=== PATIENT | male | born 1940 | race Caucasian/White ===

== ENCOUNTER 2017-02-09 11:00 | Inpatient (IN) ==
[2017-02-09] MEDS ORDERED: traMADol 50 MG TABLET PO PRN (15:51)
[2017-02-09] MEDS ORDERED: Acetaminophen 325 MG TABLET PO PRN (15:51)
[2017-02-09] MEDS ORDERED: Ipratropium/Albuterol Neb 3 ML IH PRN (15:51)
[2017-02-09] MEDS ORDERED: Nitroglycerin 0.4 MG TAB.SUBL SL PRN (15:51)
[2017-02-09] MEDS: Ipratropium/Albuterol Neb 3 ML IH SCH ×2 (17:00→22:12)
[2017-02-09] MEDS: Furosemide 20 MG TABLET PO SCH (18:14)
[2017-02-09] MEDS: Metoprolol XL (24 HR) Succ 50 MG TAB.ER.24H PO SCH (18:14)
[2017-02-09] MEDS: Isosorbide MONOnitrate (24 HR) 60 MG TAB.ER.24H PO SCH (18:14)
[2017-02-09] MEDS: Budesonide/Formoterol 160/4.5 MDI IH SCH (22:11)
[2017-02-10] MEDS: Ipratropium/Albuterol Neb 3 ML IH SCH ×4 (04:41→21:59)
[2017-02-10 06:52] LABS: Basophils % 0.1 %; Hematocrit 34.4 % (37.5-50.1); Hemoglobin 11.7 g/dL (12.9-16.9); Immature Granulocytes % 0.9 % (0-4); Lymphocytes % 4.7 %; Mean Corpuscular Hemoglobin 30.5 pg (28.0-33.3); Mean Corpuscular Volume 89.8 fL (83.0-100.0); Mean Platelet Volume 11.2 fL (9.4-12.4); Monocytes # 0.9 K/mcL (0.0-1.3); Monocytes % 5.8 %; Neutrophils # 14.1 K/mcL (1.6-8.9); Platelet Count 346 K/mcL (140-400); Red Blood Count 3.83 M/mcL (4.19-5.50); Red Cell Distribution Width 12.8 % (11.5-14.5); Segmented Neutrophils % 88.5 %
[2017-02-10 07:08] LABS: Calcium 8.8 mg/dL (8.6-10.8); Potassium 3.2 mEq/L (3.5-4.5)
[2017-02-10 07:14] LABS: Lymphocytes # 0.8 K/mcL (0.6-4.6)
[2017-02-10 08:03] LABS: INR 1.2; Prothrombin Time 12.5 Seconds (9.4-12.1)
[2017-02-10] MEDS: Furosemide 20 MG TABLET PO SCH ×2 (08:35→16:19)
[2017-02-10] MEDS: Loratadine 10 MG TABLET PO SCH (08:35)
[2017-02-10] MEDS: Finasteride 5 MG TABLET PO SCH (08:35)
[2017-02-10] MEDS: Aspirin Enteric Coated 325 MG Tablet PO SCH (08:43)
[2017-02-10] MEDS ORDERED: predniSONE 10 MG TABLET PO SCH (09:00)
[2017-02-10] MEDS ORDERED: amLODIPine 5 MG TABLET PO SCH (09:00)
[2017-02-10] MEDS ORDERED: Ascorbic Acid 500 MG TABLET PO SCH (09:00)
[2017-02-10] MEDS: Budesonide/Formoterol 160/4.5 MDI IH SCH ×2 (10:34→22:00)
[2017-02-10] MEDS: Nystatin SUSP 5 ML UD.LIQ PO SCH ×3 (16:08→20:35)
[2017-02-10] MEDS: Isosorbide MONOnitrate (24 HR) 60 MG TAB.ER.24H PO SCH (16:18)
[2017-02-10] MEDS: Metoprolol XL (24 HR) Succ 50 MG TAB.ER.24H PO SCH (16:19)
--- NOTE | 2017-02-10 17:24 | Internal Med History&Physical ---
Date of Encounter: 02/10/17 Time of Encounter: 16:40 Assessment and Plan (1) Pneumonia Current visit: No Status: Acute He completed a course of antibiotics during his [facility] stay. Will monitor labs and clinical status. Repeat chest CT scan was recommended in 3-6 months by the radiologist. Qualifiers: Pneumonia type: due to unspecified organism Laterality: bilateral Lung location: unspecified part of lung Qualified Code(s): J18.9 - Pneumonia, unspecified organism (2) Idiopathic pulmonary fibrosis Current visit: No Status: Acute Continue prednisone and oxygen. (3) Atrial fibrillation Current visit: No Status: Acute He reports being told he should not use OAC. Continue aspirin Qualifiers: Atrial fibrillation type: paroxysmal Qualified Code(s): I48.0 - Paroxysmal atrial fibrillation (4) Chronic systolic (congestive) heart failure Current visit: No Status: Chronic We will check BNP peptide in a.m. Continue lisinopril, Lasix, and metoprolol. (5) Hypokalemia Current visit: No Status: Acute We will give supplemental potassium and monitor labs. (6) Weight loss Current visit: Yes Status: Acute He had chest and abdominal CT scans during his recent [facility] stay without evidence of malignancy. Will recheck TSH in a.m. Internal Medicine - H&P: HPI Chief complaint: Pneumonia, weakness Admitted From: Hospital to Hospital Transfer Plans for Post Hospital Care: Home History of present illness: Mr. Bojorquez is a 77 year old male who was hospitalized at [facility] February 01- February 09 after presenting with dyspnea. He was found to have bilateral pneumonia on chest CT. He was stabilized and discharged to [facility] swing bed for rehabilitation therapy prior to returning home. His respiratory history is significant for a diagnosis of pulmonary fibrosis in 2011. He smoked from age [age] and has a diagnosis of COPD. He wears oxygen 24 /7 at home. He follows with an [facility] ballpoint pen cartridge tester. Past Med Surg Social Fam HX - Past Medical History Medical history: arthritis, atrial fibrillation, COPD, coronary artery disease, hyperlipidemia, hypertension, myocardial infarction, other Psychiatric history: depression - Past Surgical History Surgical History: coronary bypass (CABG) - Social History Smoking Status: Former smoker Smokeless Tobacco Status: No Alcohol use: occasionally Drug use: none - Family History Mother Family Member Ethnicity: Non- Living Status: Hx Family Cardiac Disorders: Yes Internal Medicine - H&P: Meds Albuterol Sulfate [Ventolin Hfa] 2 puff IH Q4-6H PRN 02/09/15 [History] Allopurinol [Zyloprim] 300 mg PO BID 02/09/15 [History] Finasteride [Proscar] 5 mg PO DAILY 02/09/15 [History] Fluticasone Propionate Nasal [Flonase] 2 spray NS DAILY 02/09/15 [History] Fluticasone/Salmeterol [Advair 500-50 Diskus] 1 each IH BID 02/09/15 [History] Ipratropium/Albuterol Neb [Duoneb] 3 ml IH Q6HR PRN 02/09/15 [History] Isosorbide MONOnitrate (24 HR) [Imdur] 60 mg PO QPM 02/09/15 [History] Nitroglycerin 0.4 mg SL Q5MIN PRN 02/09/15 [History] Simvastatin [Zocor] 40 mg PO HS 02/09/15 [History] Aspirin [Ecotrin] 325 mg PO DAILY 06/20/16 [History] Desloratadine 5 mg PO DAILY 06/20/16 [History] Lisinopril [Zestril] 10 mg PO QAM 06/20/16 [History] Metoprolol Succinate 100 mg PO QPM 06/20/16 [History] Ascorbic Acid [Vitamin C] 500 mg PO DAILY 02/01/17 [History] Vitamin E Acid Succinate [Vitamin E] 400 units PO DAILY 02/01/17 [History] amLODIPine [Norvasc] 5 mg PO DAILY 02/01/17 [History] Acetaminophen [Tylenol] 650 mg PO Q6HR PRN tablet 02/09/17 [Rx] Furosemide [Lasix] 20 mg PO BID #60 tablet 02/09/17 [Rx] Ipratropium/Albuterol Neb [Duoneb] 3 ml IH [id number] inhsol 02/09/17 [Rx] Megestrol Acetate [Megace] 40 mg PO DAILY tablet 02/09/17 [Rx] Potassium Chloride 10 meq PO Q24H #0 tab.er.prt 02/09/17 [Rx] Tramadol HCl [Ultram] 50 mg PO QID PRN #20 tablet 02/09/17 [Rx] predniSONE [PredniSONE] 10 mg PO Q24H 49 Days tablet 02/09/17 [Rx] 3 Allergy/AdvReac Type Severity Reaction Status Date / Time No Known Allergies Allergy Verified 06/20/16 13:27 All Systems PM: A 10-system review of systems was performed and is negative for pertinent findings except as documented above in the HPI. Review of systems: Gen.: He states his weight has decreased approximately 30 pounds in the past 2 years due to poor appetite. He is now on Megace. Cardiovascular: He has a history of hypertension. He has known ASHD status post CT in 1995 followed by a single vessel CABG. He thinks he had a heart cath approximately 2011 without further intervention done. He has a diagnosis of CHF with an echocardiogram at [facility] 02/01/2017 showing LVEF of 40%. There was LAE at 5.0 cm. There was increased thickness of the interventricular septum and posterior wall at 1.20 cm each. A previous echocardiogram 2016 showed mild MR, moderate TR, and moderate pulmonary hypertension with estimated RVSP of 52 mmHg. He LVEF was 35% at that time. He has paroxysmal atrial fibrillation. He denies DVT or pulmonary emboli. Respiratory: As per history of present illness GI: He denies disorders of his liver gallbladder or exocrine pancreas. : He had azotemia during his [facility] stay. He has had hematuria approximately 2013 with a negative cystoscopy. Neurologic: He denies large distribution strokes or seizures. He had a fall several months ago and sustained a subdural hematoma which was treated nonoperatively. He was told he could not be on OAC for atrial fibrillation due to the SDH. Endocrine: He has hyperlipidemia. He was told he was borderline diabetic in the past. He denies thyroid disease. Hematology/oncology: He had anemia on blood work during his [facility] stay. He denies internal malignancies. Psychiatric: He has anxiety and depression but denies other mental health issues Musk skeletal: He has diagnoses of DJD and gout. - Constitutional Vitals: Temp Pulse Resp BP Pulse Ox 97.9 F 104 14 125/79 93 02/10/17 07:44 02/10/17 12:18 02/10/17 10:34 02/10/17 07:44 02/10/17 12:18 Exam: Gen.: He is a well-developed well-nourished male who appears in minimal respiratory distress at the present time. HEENT: Head is atraumatic and normocephalic. Eyes: EOMI. There is no scleral icterus. Mouth: Mucosa is moist. Neck: Supple and nontender. There is no thyromegaly or adenopathy noted. Heart: Irregularly irregular. Tones are soft. Lungs: He has inspiratory crackles diffusely that do not clear with coughing. He has no expiratory wheezing. Abdomen: Soft and nontender. No masses or guarding are noted. Extremities: There is no cyanosis edema or clubbing noted. Dorsalis pedis and posttibial pulses are trace to 1+ palpable bilaterally. He has DJD changes of his hands. Neurologic: Mental status: He is talkative and a good historian. Cranial nerves : Smile is symmetric. Forehead wrinkles bilaterally. Tongue protrudes midline. EOMI. Motor: There is no pronator drift. Cerebellar: Finger to nose is intact bilaterally. Skin: Warm and dry Internal Med - H&P Results - Labs CBC & Chem 7: 02/10/17 05:42 02/10/17 05:42 Labs: Short CBC 02/10/17 Range/Units 05:42 WBC 15.9 H (4.3-11.1) K/mcL Hgb 11.7 L (12.9-16.9) g/dL Hct 34.4 L (37.5-50.1) % Plt Count 346 (140-400) K/mcL Neutrophils # 14.1 H (1.6-8.9) K/mcL BMP 02/10/17 05:42 Sodium 144 Potassium 3.2 L Chloride 103 Carbon Dioxide 26 BUN 60 H Creatinine 1.89 H Glucose 143 H Calcium 8.8
[2017-02-11] MEDS: Ipratropium/Albuterol Neb 3 ML IH SCH ×4 (04:42→21:36)
[2017-02-11 06:26] LABS: Basophils % 0.2 %; Eosinophils # 0.1 K/mcL (0.0-0.6); Eosinophils % 0.4 %; Hematocrit 33.8 % (37.5-50.1); Hemoglobin 11.6 g/dL (12.9-16.9); Immature Granulocytes % 1.1 % (0-4); Lymphocytes # 1.5 K/mcL (0.6-4.6); Mean Corpuscular HGB Conc 34.3 g/dL (31.6-35.5); Mean Corpuscular Hemoglobin 30.7 pg (28.0-33.3); Mean Corpuscular Volume 89.4 fL (83.0-100.0); Mean Platelet Volume 11.4 fL (9.4-12.4); Monocytes # 1.1 K/mcL (0.0-1.3); Platelet Count 337 K/mcL (140-400); Red Blood Count 3.78 M/mcL (4.19-5.50); Red Cell Distribution Width 12.9 % (11.5-14.5); Segmented Neutrophils % 84.3 %
[2017-02-11 06:30] LABS: Neutrophils # 15.9 K/mcL (1.6-8.9)
[2017-02-11 06:46] LABS: Calcium 8.8 mg/dL (8.6-10.8); Potassium 3.2 mEq/L (3.5-4.5)
[2017-02-11] MEDS ORDERED: predniSONE 10 MG TABLET PO SCH (09:00)
[2017-02-11] MEDS: Ascorbic Acid 500 MG TABLET PO SCH (10:12)
[2017-02-11] MEDS: Nystatin SUSP 5 ML UD.LIQ PO SCH ×4 (10:13→20:52)
[2017-02-11] MEDS: Finasteride 5 MG TABLET PO SCH (10:13)
[2017-02-11] MEDS: Loratadine 10 MG TABLET PO SCH (10:13)
[2017-02-11] MEDS: Aspirin Enteric Coated 325 MG Tablet PO SCH (10:13)
[2017-02-11] MEDS: Furosemide 20 MG TABLET PO SCH (10:13)
[2017-02-11] MEDS: Fluticasone Propionate Nasal 50 MCG/SPRAY BOTTLE NS SCH ×2 (10:14→15:41)
[2017-02-11] MEDS: Budesonide/Formoterol 160/4.5 MDI IH SCH ×2 (10:35→21:36)
--- NOTE | 2017-02-11 13:04 | Internal Med Progress Note ---
Date of Encounter: 02/11/17 Time of Encounter: 12:55 - Assessment and plan (1) Pneumonia Current Visit: No Status: Acute Assessment and plan: February 11. Leukocytosis with left shift has slightly worsened. He does not feel unusually dyspneic and has not had fevers. Will monitor without giving antibiotics at this time. Qualifiers: Pneumonia type: due to unspecified organism Laterality: bilateral Lung location: unspecified part of lung Qualified Code(s): J18.9 - Pneumonia, unspecified organism (2) Idiopathic pulmonary fibrosis Current Visit: No Status: Acute Assessment and plan: February 11. Will decrease prednisone. Continue oxygen. (3) Atrial fibrillation Current Visit: No Status: Acute Assessment and plan: February 11. Continue aspirin. Qualifiers: Atrial fibrillation type: paroxysmal Qualified Code(s): I48.0 - Paroxysmal atrial fibrillation (4) Chronic systolic (congestive) heart failure Current Visit: No Status: Chronic Assessment and plan: February 11. Will increase isosorbide. Decrease Lasix to avoid worsening azotemia. Add Lanoxin. Continue metoprolol and lisinopril. (5) Hypokalemia Current Visit: No Status: Acute Assessment and plan: February 11. Continue supplemental potassium and monitor labs (6) Weight loss Current Visit: Yes Status: Acute Assessment and plan: February 11. TSH was normal. (7) Acute renal failure (ARF) Current Visit: No Status: Acute Assessment and plan: February 11. Will decrease Lasix and monitor labs. Qualifiers: Acute renal failure type: unspecified Qualified Code(s): N17.9 - Acute kidney failure, unspecified - Subjective Interval history: February 11. He has no new complaints. He reports persistent mild pain on swallowing - Constitutional Vitals: Temp Pulse Resp BP Pulse Ox 98.6 F 71 16 96/46 94 02/11/17 06:18 02/11/17 06:18 02/11/17 06:18 02/11/17 06:18 02/11/17 09:00 Exam: He is resting comfortably in bed and appears in no acute distress. His affect is bright and cheerful. I reviewed his medications and lab results. Internal Medicine: Result - Labs CBC & Chem 7: 02/11/17 04:19 02/11/17 04:19 Labs: Short CBC 02/11/17 Range/Units 04:19 WBC 18.9 H (4.3-11.1) K/mcL Hgb 11.6 L (12.9-16.9) g/dL Hct 33.8 L (37.5-50.1) % Plt Count 337 (140-400) K/mcL Neutrophils # 15.9 H (1.6-8.9) K/mcL BMP 02/11/17 04:19 Sodium 143 Potassium 3.2 L Chloride 104 Carbon Dioxide 25 BUN 66 H Creatinine 1.98 H Glucose 104 H Calcium 8.8 - ABG Interpretation ABG results: PT/INR, D-dimer PT 12.5 Seconds (9.4-12.1) H 02/10/17 05:42 Consult Discharge Plan - Plan Referrals: Gayatri Jade, REQUISITION APPROVER [Primary Care Provider] - 1 week
[2017-02-11] MEDS ORDERED: Loratadine 10 MG TABLET PO PRN (13:11)
[2017-02-11] MEDS: Isosorbide MONOnitrate (24 HR) 60 MG TAB.ER.24H PO SCH ×2 (15:50→18:49)
[2017-02-11] MEDS: *HR* Digoxin 0.125 MG TABLET PO SCH (15:51)
[2017-02-11 18:35] LABS: Folate 7.5 ng/mL (7.0-31.4)
[2017-02-11] MEDS: Metoprolol XL (24 HR) Succ 50 MG TAB.ER.24H PO SCH (18:50)
[2017-02-12] MEDS: Ipratropium/Albuterol Neb 3 ML IH SCH ×4 (04:26→21:49)
[2017-02-12] MEDS: *HR* Digoxin 0.125 MG TABLET PO SCH (09:10)
[2017-02-12] MEDS: Ascorbic Acid 500 MG TABLET PO SCH (09:10)
[2017-02-12] MEDS: Finasteride 5 MG TABLET PO SCH (09:11)
[2017-02-12] MEDS: Furosemide 20 MG TABLET PO SCH (09:11)
[2017-02-12] MEDS: Aspirin Enteric Coated 325 MG Tablet PO SCH (09:14)
[2017-02-12] MEDS: Nystatin SUSP 5 ML UD.LIQ PO SCH ×4 (09:14→19:33)
[2017-02-12] MEDS: Budesonide/Formoterol 160/4.5 MDI IH SCH ×2 (10:27→21:49)
--- NOTE | 2017-02-12 15:25 | Internal Med Progress Note ---
Date of Encounter: 02/12/17 Time of Encounter: 15:15 - Assessment and plan (1) Pneumonia Current Visit: No Status: Acute Assessment and plan: February 11. Leukocytosis with left shift has slightly worsened. He does not feel unusually dyspneic and has not had fevers. Will monitor without giving antibiotics at this time. February 12. Recheck CBC in a.m. Remains afebrile. Qualifiers: Pneumonia type: due to unspecified organism Laterality: bilateral Lung location: unspecified part of lung Qualified Code(s): J18.9 - Pneumonia, unspecified organism (2) Idiopathic pulmonary fibrosis Current Visit: No Status: Acute Assessment and plan: February 11. Will decrease prednisone. Continue oxygen. (3) Atrial fibrillation Current Visit: No Status: Acute Assessment and plan: February 11. Continue aspirin. Qualifiers: Atrial fibrillation type: paroxysmal Qualified Code(s): I48.0 - Paroxysmal atrial fibrillation (4) Chronic systolic (congestive) heart failure Current Visit: No Status: Chronic Assessment and plan: February 11. Will increase isosorbide. Decrease Lasix to avoid worsening azotemia. Add Lanoxin. Continue metoprolol and lisinopril. February 12. Continue present regimen. Recheck labs in a.m. (5) Hypokalemia Current Visit: No Status: Acute Assessment and plan: February 11. Continue supplemental potassium and monitor labs February 12. Recheck labs in a.m. (6) Weight loss Current Visit: Yes Status: Acute Assessment and plan: February 11. TSH was normal. (7) Acute renal failure (ARF) Current Visit: No Status: Acute Assessment and plan: February 11. Will decrease Lasix and monitor labs. February 12. Recheck labs in a.m. Qualifiers: Acute renal failure type: unspecified Qualified Code(s): N17.9 - Acute kidney failure, unspecified (8) Pain on swallowing Current Visit: Yes Status: Acute Assessment and plan: February 12. Will order Diflucan and continue Mycostatin MW. - Subjective Interval history: February 11. He has no new complaints. He reports persistent mild pain on swallowing February 12. He has no new complaints but persistent mild pain on swallowing. - Constitutional Vitals: Temp Pulse Resp BP Pulse Ox 97.7 F 84 18 88/54 82 02/12/17 09:00 02/12/17 14:49 02/12/17 10:26 02/12/17 09:00 02/12/17 14:49 Exam: He is resting comfortably in bed and appears in no acute distress. Extremities show no pitting edema. His affect is bright and cheerful. I reviewed his medications and lab results. Internal Medicine: Result - Labs CBC & Chem 7: 02/11/17 04:19 02/11/17 04:19 - ABG Interpretation ABG results: PT/INR, D-dimer PT 12.5 Seconds (9.4-12.1) H 02/10/17 05:42 Consult Discharge Plan - Plan Referrals: Gayatri Jade, SENIOR TALENT ACQUISITION SPECIALIST [Primary Care Provider] - 1 week
[2017-02-12] MEDS: Fluticasone Propionate Nasal 50 MCG/SPRAY BOTTLE NS SCH (15:37)
[2017-02-12] MEDS: Fluconazole 100 MG TABLET PO SCH (15:45)
[2017-02-12] MEDS: Isosorbide MONOnitrate (24 HR) 60 MG TAB.ER.24H PO SCH (18:00)
[2017-02-12] MEDS: Metoprolol XL (24 HR) Succ 50 MG TAB.ER.24H PO SCH (18:00)
[2017-02-13] MEDS: Ipratropium/Albuterol Neb 3 ML IH SCH ×2 (04:19→10:31)
[2017-02-13 06:00] LABS: Basophils % 0.1 %; Eosinophils # 0.3 K/mcL (0.0-0.6); Eosinophils % 1.6 %; Hematocrit 34.7 % (37.5-50.1); Hemoglobin 11.7 g/dL (12.9-16.9); Immature Granulocytes % 0.9 % (0-4); Lymphocytes # 1.2 K/mcL (0.6-4.6); Lymphocytes % 6.1 %; Mean Corpuscular HGB Conc 33.7 g/dL (31.6-35.5); Mean Corpuscular Hemoglobin 30.6 pg (28.0-33.3); Mean Corpuscular Volume 90.8 fL (83.0-100.0); Monocytes # 0.9 K/mcL (0.0-1.3); Monocytes % 4.8 %; Platelet Count 264 K/mcL (140-400); Red Blood Count 3.82 M/mcL (4.19-5.50); Segmented Neutrophils % 86.5 %
[2017-02-13 06:03] LABS: Neutrophils # 16.3 K/mcL (1.6-8.9)
[2017-02-13 06:16] LABS: BUN/Creatinine Ratio 37 (6-26); Blood Urea Nitrogen 52 mg/dL (8-26); Calcium 8.9 mg/dL (8.6-10.8); Carbon Dioxide 27 mEq/L (19-29); Chloride 108 mEq/L (98-109); Glucose 108 mg/dL (70-99); Osmolality,Calculated 319 (280-300); Potassium 3.9 mEq/L (3.5-4.5); Sodium 147 mEq/L (136-145); eGFR For African Americans 58 (> 60); eGFR For Non-African Americans 48 (> 60)
[2017-02-13 06:24] LABS: Digoxin < 0.3 ng/mL (0.8-2.0)
[2017-02-13] MEDS: Fluconazole 100 MG TABLET PO SCH (09:06)
[2017-02-13] MEDS: Aspirin Enteric Coated 325 MG Tablet PO SCH (09:06)
[2017-02-13] MEDS: Furosemide 20 MG TABLET PO SCH (09:09)
[2017-02-13] MEDS: Finasteride 5 MG TABLET PO SCH (09:09)
[2017-02-13] MEDS: *HR* Digoxin 0.125 MG TABLET PO SCH (09:09)
[2017-02-13] MEDS: predniSONE 10 MG TABLET PO SCH (09:10)
[2017-02-13] MEDS: Ascorbic Acid 500 MG TABLET PO SCH (09:11)
[2017-02-13] MEDS: Fluticasone Propionate Nasal 50 MCG/SPRAY BOTTLE NS SCH (09:15)
[2017-02-13] MEDS: Nystatin SUSP 5 ML UD.LIQ PO SCH ×4 (09:15→21:35)
[2017-02-13] MEDS: Budesonide/Formoterol 160/4.5 MDI IH SCH ×2 (10:30→21:46)
--- NOTE | 2017-02-13 10:58 | Internal Med Progress Note ---
Date of Encounter: 02/13/17 Time of Encounter: 10:50 - Assessment and plan (1) Pneumonia Current Visit: No Status: Acute Assessment and plan: February 11. Leukocytosis with left shift has slightly worsened. He does not feel unusually dyspneic and has not had fevers. Will monitor without giving antibiotics at this time. February 12. Recheck CBC in a.m. Remains afebrile. February 13. WBC has stabilized. Differential is minimally changed. Will continue to observe without antibiotics. Qualifiers: Pneumonia type: due to unspecified organism Laterality: bilateral Lung location: unspecified part of lung Qualified Code(s): J18.9 - Pneumonia, unspecified organism (2) Idiopathic pulmonary fibrosis Current Visit: No Status: Acute Assessment and plan: February 11. Will decrease prednisone. Continue oxygen. (3) Atrial fibrillation Current Visit: No Status: Acute Assessment and plan: February 11. Continue aspirin. Qualifiers: Atrial fibrillation type: paroxysmal Qualified Code(s): I48.0 - Paroxysmal atrial fibrillation (4) Chronic systolic (congestive) heart failure Current Visit: No Status: Chronic Assessment and plan: February 11. Will increase isosorbide. Decrease Lasix to avoid worsening azotemia. Add Lanoxin. Continue metoprolol and lisinopril. February 12. Continue present regimen. Recheck labs in a.m. February 13. BMP peptide is risen to 761. Lanoxin level is low so dose will be increased. Continue lisinopril, Lasix, and metoprolol.. (5) Hypokalemia Current Visit: No Status: Acute Assessment and plan: February 11. Continue supplemental potassium and monitor labs February 12. Recheck labs in a.m. February 13. Resolved. Continue present regimen (6) Weight loss Current Visit: Yes Status: Acute Assessment and plan: February 11. TSH was normal. (7) Acute renal failure (ARF) Current Visit: No Status: Acute Assessment and plan: February 11. Will decrease Lasix and monitor labs. February 12. Recheck labs in a.m. February 13. Significantly improved. Continue present regimen Qualifiers: Acute renal failure type: unspecified Qualified Code(s): N17.9 - Acute kidney failure, unspecified (8) Pain on swallowing Current Visit: Yes Status: Acute Assessment and plan: February 12. Will order Diflucan and continue Mycostatin MW. (9) Anxiety Current Visit: Yes Status: Acute Assessment and plan: February 13. His reports he becomes slightly confused and very anxious at nighttime. I will order prn Xanax. Will also order scheduled trazodone at bedtime for insomnia - Subjective Interval history: February 11. He has no new complaints. He reports persistent mild pain on swallowing February 12. He has no new complaints but persistent mild pain on swallowing. February 13. He has no new complaints. He did not mention pain on swallowing today. - Constitutional Vitals: Temp Pulse Resp BP Pulse Ox 99.0 F 71 17 118/57 93 02/13/17 06:39 02/13/17 06:39 02/13/17 10:32 02/13/17 06:39 02/13/17 10:32 Exam: He is sitting in a chair at bedside resting infundibuli. His lungs show crackles unchanged from previous exam that do not clear with coughing. Legs show no edema. I reviewed his medications and lab results. Internal Medicine: Result - Labs CBC & Chem 7: 02/13/17 05:15 02/13/17 05:15 Labs: Short CBC 02/13/17 Range/Units 05:15 WBC 18.8 H (4.3-11.1) K/mcL Hgb 11.7 L (12.9-16.9) g/dL Hct 34.7 L (37.5-50.1) % Plt Count 264 (140-400) K/mcL Neutrophils # 16.3 H (1.6-8.9) K/mcL BMP 02/13/17 05:15 Sodium 147 H Potassium 3.9 Chloride 108 Carbon Dioxide 27 BUN 52 H Creatinine 1.42 H Glucose 108 H Calcium 8.9 - ABG Interpretation ABG results: PT/INR, D-dimer PT 12.5 Seconds (9.4-12.1) H 02/10/17 05:42 Consult Discharge Plan - Plan Referrals: Gayatri Jade, RESIDENTIAL ELECTRICIAN [Primary Care Provider] - 1 week
[2017-02-13] MEDS ORDERED: *HR* Digoxin 0.125 MG TABLET PO ONE (11:15)
[2017-02-13] MEDS: Aspirin Enteric Coated 81 MG Tablet PO SCH (12:20)
[2017-02-13] MEDS: Metoprolol XL (24 HR) Succ 50 MG TAB.ER.24H PO SCH (18:11)
[2017-02-13] MEDS: Isosorbide MONOnitrate (24 HR) 60 MG TAB.ER.24H PO SCH (18:11)
[2017-02-13] MEDS: traZODone 50 MG TABLET PO SCH (21:35)
[2017-02-13] MEDS: ALPRAZolam 0.25 MG TABLET PO PRN (21:35)
[2017-02-14] MEDS: Fluconazole 100 MG TABLET PO SCH (09:36)
[2017-02-14] MEDS: Aspirin Enteric Coated 81 MG Tablet PO SCH (09:36)
[2017-02-14] MEDS: *HR* Digoxin 0.25 MG TABLET PO SCH (09:37)
[2017-02-14] MEDS: Furosemide 20 MG TABLET PO SCH (09:37)
[2017-02-14] MEDS: Ascorbic Acid 500 MG TABLET PO SCH (09:38)
[2017-02-14] MEDS: Nystatin SUSP 5 ML UD.LIQ PO SCH ×4 (09:38→20:35)
[2017-02-14] MEDS: Finasteride 5 MG TABLET PO SCH (09:39)
[2017-02-14] MEDS: Fluticasone Propionate Nasal 50 MCG/SPRAY BOTTLE NS SCH (09:42)
[2017-02-14] MEDS: Budesonide/Formoterol 160/4.5 MDI IH SCH ×2 (09:51→22:26)
[2017-02-14] MEDS: Isosorbide MONOnitrate (24 HR) 60 MG TAB.ER.24H PO SCH (17:30)
[2017-02-14] MEDS: Metoprolol XL (24 HR) Succ 50 MG TAB.ER.24H PO SCH (17:30)
[2017-02-14] MEDS: traZODone 50 MG TABLET PO SCH (20:36)
[2017-02-14] MEDS: Mirtazapine 15 MG TABLET PO SCH (20:37)
[2017-02-15 06:19] LABS: Basophils % 0.1 %; Eosinophils % 2.6 %; Hematocrit 36.6 % (37.5-50.1); Hemoglobin 12.1 g/dL (12.9-16.9); Immature Granulocytes % 0.8 % (0-4); Lymphocytes # 1.5 K/mcL (0.6-4.6); Lymphocytes % 8.6 %; Mean Corpuscular HGB Conc 33.1 g/dL (31.6-35.5); Mean Corpuscular Hemoglobin 30.2 pg (28.0-33.3); Mean Corpuscular Volume 91.3 fL (83.0-100.0); Mean Platelet Volume 11.5 fL (9.4-12.4); Monocytes % 5.8 %; Platelet Count 251 K/mcL (140-400); Red Blood Count 4.01 M/mcL (4.19-5.50); Red Cell Distribution Width 13.2 % (11.5-14.5); Segmented Neutrophils % 82.1 %
[2017-02-15 06:22] LABS: Eosinophils # 0.4 K/mcL (0.0-0.6)
[2017-02-15 06:38] LABS: Calcium 8.8 mg/dL (8.6-10.8); Potassium 4.4 mEq/L (3.5-4.5)
[2017-02-15 06:46] LABS: Digoxin 1.1 ng/mL (0.8-2.0)
[2017-02-15] MEDS: *HR* Digoxin 0.25 MG TABLET PO SCH (10:22)
[2017-02-15] MEDS: Finasteride 5 MG TABLET PO SCH (10:23)
[2017-02-15] MEDS: Furosemide 20 MG TABLET PO SCH (10:23)
[2017-02-15] MEDS: Fluconazole 100 MG TABLET PO SCH (10:24)
[2017-02-15] MEDS: Ascorbic Acid 500 MG TABLET PO SCH (10:24)
[2017-02-15] MEDS: Aspirin Enteric Coated 81 MG Tablet PO SCH (10:24)
[2017-02-15] MEDS: predniSONE 10 MG TABLET PO SCH (10:24)
[2017-02-15] MEDS: Nystatin SUSP 5 ML UD.LIQ PO SCH (10:25)
[2017-02-15] MEDS: Fluticasone Propionate Nasal 50 MCG/SPRAY BOTTLE NS SCH (10:28)
[2017-02-15] MEDS ORDERED: traZODone 50 MG TABLET PO PRN (10:36)
[2017-02-15] MEDS: Budesonide/Formoterol 160/4.5 MDI IH SCH ×2 (10:44→22:13)
[2017-02-15] MEDS ORDERED: Furosemide 20 MG TABLET PO SCH (10:45)
--- NOTE | 2017-02-15 10:46 | Internal Med Progress Note ---
Date of Encounter: 02/15/17 Time of Encounter: 10:25 - Assessment and plan (1) Pneumonia Current Visit: No Status: Acute Assessment and plan: February 11. Leukocytosis with left shift has slightly worsened. He does not feel unusually dyspneic and has not had fevers. Will monitor without giving antibiotics at this time. February 12. Recheck CBC in a.m. Remains afebrile. February 13. WBC has stabilized. Differential is minimally changed. Will continue to observe without antibiotics. Qualifiers: Pneumonia type: due to unspecified organism Laterality: bilateral Lung location: unspecified part of lung Qualified Code(s): J18.9 - Pneumonia, unspecified organism (2) Idiopathic pulmonary fibrosis Current Visit: No Status: Acute Assessment and plan: February 11. Will decrease prednisone. Continue oxygen. (3) Atrial fibrillation Current Visit: No Status: Acute Assessment and plan: February 11. Continue aspirin. Qualifiers: Atrial fibrillation type: paroxysmal Qualified Code(s): I48.0 - Paroxysmal atrial fibrillation (4) Chronic systolic (congestive) heart failure Current Visit: No Status: Chronic Assessment and plan: February 11. Will increase isosorbide. Decrease Lasix to avoid worsening azotemia. Add Lanoxin. Continue metoprolol and lisinopril. February 12. Continue present regimen. Recheck labs in a.m. February 13. BMP peptide is risen to 761. Lanoxin level is low so dose will be increased. Continue lisinopril, Lasix, and metoprolol.. February 15. Bn peptide has improved to 615. Lanoxin level therapeutic at 1.1. Will discontinue lisinopril since his blood pressure is occasionally borderline low and he still has azotemia. Decrease Lasix to every other day and monitor labs and clinical response. (5) Hypokalemia Current Visit: No Status: Acute Assessment and plan: February 11. Continue supplemental potassium and monitor labs February 12. Recheck labs in a.m. February 13. Resolved. Continue present regimen (6) Weight loss Current Visit: Yes Status: Acute Assessment and plan: February 11. TSH was normal. February 15. Remeron was ordered. He refused it last night. (7) Acute renal failure (ARF) Current Visit: No Status: Acute Assessment and plan: February 11. Will decrease Lasix and monitor labs. February 12. Recheck labs in a.m. February 13. Significantly improved. Continue present regimen February 15. We will decrease Lasix and discontinue lisinopril as per above. Continue to monitor renal indices. Qualifiers: Acute renal failure type: unspecified Qualified Code(s): N17.9 - Acute kidney failure, unspecified (8) Pain on swallowing Current Visit: Yes Status: Acute Assessment and plan: February 12. Will order Diflucan and continue Mycostatin MW. February 15. He has not complained of this in the last 2 days. (9) Anxiety Current Visit: Yes Status: Acute Assessment and plan: February 13. His reports he becomes slightly confused and very anxious at nighttime. I will order prn Xanax. Will also order scheduled trazodone at bedtime for insomnia February 15. He does not want to take a scheduled hypnotic. We will change trazodone to when necessary. Continue Xanax when necessary - Subjective Interval history: February 11. He has no new complaints. He reports persistent mild pain on swallowing February 12. He has no new complaints but persistent mild pain on swallowing. February 13. He has no new complaints. He did not mention pain on swallowing today. February 15. He has no new complaints. - Constitutional Vitals: Temp Pulse Resp BP Pulse Ox 97.9 F 94 18 121/65 94 02/14/17 18:24 02/14/17 18:24 02/14/17 22:31 02/14/17 18:24 02/14/17 22:31 Exam: He is sitting in a chair at bedside resting comfortably. He does not appear significantly dyspneic at rest. He is wearing oxygen nasal cannula. Extremities show no pitting edema. I reviewed his medications and lab results. Internal Medicine: Result - Labs CBC & Chem 7: 02/15/17 05:46 02/15/17 05:46 Labs: Short CBC 02/15/17 Range/Units 05:46 WBC 17.0 H (4.3-11.1) K/mcL Hgb 12.1 L (12.9-16.9) g/dL Hct 36.6 L (37.5-50.1) % Plt Count 251 (140-400) K/mcL Neutrophils # 14.0 H (1.6-8.9) K/mcL BMP 02/15/17 05:46 Sodium 146 H Potassium 4.4 Chloride 108 Carbon Dioxide 27 BUN 58 H Creatinine 1.49 H Glucose 90 Calcium 8.8 - ABG Interpretation ABG results: PT/INR, D-dimer PT 12.5 Seconds (9.4-12.1) H 02/10/17 05:42 Consult Discharge Plan - Plan Referrals: Gayatri Jade, THIERRY [Primary Care Provider] - 1 week
[2017-02-15] MEDS: Metoprolol XL (24 HR) Succ 50 MG TAB.ER.24H PO SCH (17:21)
[2017-02-15] MEDS: Isosorbide MONOnitrate (24 HR) 60 MG TAB.ER.24H PO SCH (17:21)
[2017-02-15] MEDS: Mirtazapine 15 MG TABLET PO SCH ×2 (19:53→19:58)
[2017-02-16] MEDS ORDERED: Furosemide 20 MG TABLET PO SCH (09:00)
[2017-02-16] MEDS: Aspirin Enteric Coated 81 MG Tablet PO SCH (09:02)
[2017-02-16] MEDS: Finasteride 5 MG TABLET PO SCH (09:04)
[2017-02-16] MEDS: Fluticasone Propionate Nasal 50 MCG/SPRAY BOTTLE NS SCH (09:21)
[2017-02-16] MEDS: *HR* Digoxin 0.25 MG TABLET PO SCH (09:57)
[2017-02-16] MEDS ORDERED: Fluconazole 100 MG TABLET PO SCH (10:00)
[2017-02-16] MEDS: Budesonide/Formoterol 160/4.5 MDI IH SCH ×2 (10:41→20:29)
[2017-02-16] MEDS: Nystatin SUSP 5 ML UD.LIQ PO SCH ×2 (11:36→17:47)
[2017-02-16] MEDS: Metoprolol XL (24 HR) Succ 50 MG TAB.ER.24H PO SCH (17:46)
[2017-02-16] MEDS: Isosorbide MONOnitrate (24 HR) 60 MG TAB.ER.24H PO SCH (17:46)
[2017-02-16] MEDS: Mirtazapine 15 MG TABLET PO SCH (22:02)
[2017-02-17] MEDS: Nystatin SUSP 5 ML UD.LIQ PO SCH ×4 (01:09→18:08)
[2017-02-17 06:19] LABS: Basophils % 0.1 %; Eosinophils # 0.4 K/mcL (0.0-0.6); Eosinophils % 2.2 %; Hematocrit 39.9 % (37.5-50.1); Hemoglobin 13.1 g/dL (12.9-16.9); Immature Granulocytes % 0.5 % (0-4); Lymphocytes # 1.7 K/mcL (0.6-4.6); Lymphocytes % 10.7 %; Mean Corpuscular HGB Conc 32.8 g/dL (31.6-35.5); Mean Corpuscular Volume 91.5 fL (83.0-100.0); Mean Platelet Volume 12.1 fL (9.4-12.4); Monocytes % 5.9 %; Platelet Count 270 K/mcL (140-400); Red Blood Count 4.36 M/mcL (4.19-5.50); Red Cell Distribution Width 13.3 % (11.5-14.5); Segmented Neutrophils % 80.6 %
[2017-02-17 06:41] LABS: Calcium 8.9 mg/dL (8.6-10.8); Potassium 5.4 mEq/L (3.5-4.5)
[2017-02-17] MEDS: *HR* Digoxin 0.25 MG TABLET PO SCH (08:46)
[2017-02-17] MEDS: Furosemide 20 MG TABLET PO SCH (08:47)
[2017-02-17] MEDS: Metoprolol XL (24 HR) Succ 50 MG TAB.ER.24H PO SCH (08:48)
[2017-02-17] MEDS ORDERED: *HR* Digoxin 0.25 MG TABLET PO SCH (09:00)
[2017-02-17] MEDS: Fluconazole 100 MG TABLET PO SCH (09:37)
[2017-02-17] MEDS: predniSONE 10 MG TABLET PO SCH (09:38)
[2017-02-17] MEDS: Finasteride 5 MG TABLET PO SCH (09:38)
[2017-02-17] MEDS: Aspirin Enteric Coated 81 MG Tablet PO SCH (09:38)
[2017-02-17] MEDS: Budesonide/Formoterol 160/4.5 MDI IH SCH ×2 (11:00→21:42)
[2017-02-17] MEDS: Fluticasone Propionate Nasal 50 MCG/SPRAY BOTTLE NS SCH (14:26)
[2017-02-17] MEDS: Isosorbide MONOnitrate (24 HR) 60 MG TAB.ER.24H PO SCH (18:07)
--- NOTE | 2017-02-17 18:39 | Internal Med Progress Note ---
Date of Encounter: 02/17/17 Time of Encounter: 18:30 - Assessment and plan (1) Pneumonia Current Visit: No Status: Acute Assessment and plan: February 11. Leukocytosis with left shift has slightly worsened. He does not feel unusually dyspneic and has not had fevers. Will monitor without giving antibiotics at this time. February 12. Recheck CBC in a.m. Remains afebrile. February 13. WBC has stabilized. Differential is minimally changed. Will continue to observe without antibiotics. Qualifiers: Pneumonia type: due to unspecified organism Laterality: bilateral Lung location: unspecified part of lung Qualified Code(s): J18.9 - Pneumonia, unspecified organism (2) Idiopathic pulmonary fibrosis Current Visit: No Status: Acute Assessment and plan: February 11. Will decrease prednisone. Continue oxygen. (3) Atrial fibrillation Current Visit: No Status: Acute Assessment and plan: February 11. Continue aspirin. Qualifiers: Atrial fibrillation type: paroxysmal Qualified Code(s): I48.0 - Paroxysmal atrial fibrillation (4) Chronic systolic (congestive) heart failure Current Visit: No Status: Chronic Assessment and plan: February 11. Will increase isosorbide. Decrease Lasix to avoid worsening azotemia. Add Lanoxin. Continue metoprolol and lisinopril. February 12. Continue present regimen. Recheck labs in a.m. February 13. BMP peptide is risen to 761. Lanoxin level is low so dose will be increased. Continue lisinopril, Lasix, and metoprolol.. February 15. Bn peptide has improved to 615. Lanoxin level therapeutic at 1.1. Will discontinue lisinopril since his blood pressure is occasionally borderline low and he still has azotemia. Decrease Lasix to every other day and monitor labs and clinical response. (5) Hypokalemia Current Visit: No Status: Acute Assessment and plan: February 11. Continue supplemental potassium and monitor labs February 12. Recheck labs in a.m. February 13. Resolved. Continue present regimen February 17. He now has hyperkalemia. We will discontinue potassium. (6) Weight loss Current Visit: Yes Status: Acute Assessment and plan: February 11. TSH was normal. February 15. Remeron was ordered. He refused it last night. February 17. He has consistently refused Remeron. Will discontinue it. (7) Acute renal failure (ARF) Current Visit: No Status: Acute Assessment and plan: February 11. Will decrease Lasix and monitor labs. February 12. Recheck labs in a.m. February 13. Significantly improved. Continue present regimen February 15. We will decrease Lasix and discontinue lisinopril as per above. Continue to monitor renal indices. Qualifiers: Acute renal failure type: unspecified Qualified Code(s): N17.9 - Acute kidney failure, unspecified (8) Pain on swallowing Current Visit: Yes Status: Acute Assessment and plan: February 12. Will order Diflucan and continue Mycostatin MW. February 15. He has not complained of this in the last 2 days. February 17. He mentioned to the nurse he again had dysphagia. The fluconazole and nystatin have been restarted. (9) Anxiety Current Visit: Yes Status: Acute Assessment and plan: February 13. His reports he becomes slightly confused and very anxious at nighttime. I will order prn Xanax. Will also order scheduled trazodone at bedtime for insomnia February 15. He does not want to take a scheduled hypnotic. We will change trazodone to when necessary. Continue Xanax when necessary (10) Ceruminosis Current Visit: Yes Status: Acute Assessment and plan: Will order Debrox now and irrigate after a few doses. Qualifiers: Laterality: bilateral Qualified Code(s): H61.23 - Impacted cerumen, bilateral - Subjective Interval history: February 11. He has no new complaints. He reports persistent mild pain on swallowing February 12. He has no new complaints but persistent mild pain on swallowing. February 13. He has no new complaints. He did not mention pain on swallowing today. February 15. He has no new complaints. February 17. He reports feeling fullness in his ears ears with decreased hearing. He has had cerumenosis when this has occurred previously. - Constitutional Vitals: Temp Pulse Resp BP Pulse Ox 97.2 F L 68 20 109/64 100 02/17/17 18:32 02/17/17 18:32 02/17/17 18:32 02/17/17 18:32 02/17/17 18:32 Exam: He has bilateral occlusive cerumenosis. Internal Medicine: Result - Labs CBC & Chem 7: 02/17/17 04:47 02/17/17 04:47 Labs: Short CBC 02/17/17 Range/Units 04:47 WBC 16.1 H (4.3-11.1) K/mcL Hgb 13.1 (12.9-16.9) g/dL Hct 39.9 (37.5-50.1) % Plt Count 270 (140-400) K/mcL Neutrophils # 13.0 H (1.6-8.9) K/mcL BMP 02/17/17 04:47 Sodium 145 Potassium 5.4 H D Chloride 109 Carbon Dioxide 25 BUN 80 H D Creatinine 2.22 H Glucose 102 H Calcium 8.9 - ABG Interpretation ABG results: PT/INR, D-dimer PT 12.5 Seconds (9.4-12.1) H 02/10/17 05:42 Consult Discharge Plan - Plan Referrals: Gayatri Jade, ELECTRONIC WARFARE OFFICER [Primary Care Provider] - 1 week
[2017-02-17] MEDS: Carbamide Peroxide 150 DROP/15 ML BOTTLE BOTH EARS SCH (22:01)
[2017-02-18] MEDS: Nystatin SUSP 5 ML UD.LIQ PO SCH ×4 (00:23→17:33)
[2017-02-18 06:35] LABS: Basophils % 0.1 %; Eosinophils # 0.1 K/mcL (0.0-0.6); Eosinophils % 0.6 %; Hematocrit 36.9 % (37.5-50.1); Hemoglobin 12.2 g/dL (12.9-16.9); Immature Granulocytes % 0.7 % (0-4); Lymphocytes # 1.2 K/mcL (0.6-4.6); Lymphocytes % 8.4 %; Mean Corpuscular HGB Conc 33.1 g/dL (31.6-35.5); Mean Corpuscular Hemoglobin 30.5 pg (28.0-33.3); Mean Corpuscular Volume 92.3 fL (83.0-100.0); Mean Platelet Volume 12.3 fL (9.4-12.4); Monocytes # 0.8 K/mcL (0.0-1.3); Monocytes % 5.6 %; Platelet Count 232 K/mcL (140-400); Red Cell Distribution Width 13.3 % (11.5-14.5); Segmented Neutrophils % 84.6 %
[2017-02-18 06:37] LABS: Neutrophils # 12.2 K/mcL (1.6-8.9)
[2017-02-18 06:54] LABS: Calcium 8.5 mg/dL (8.6-10.8); Potassium 4.5 mEq/L (3.5-4.5)
[2017-02-18 07:01] LABS: Digoxin 1.7 ng/mL (0.8-2.0)
[2017-02-18] MEDS: Aspirin Enteric Coated 81 MG Tablet PO SCH (08:35)
[2017-02-18] MEDS: Carbamide Peroxide 150 DROP/15 ML BOTTLE BOTH EARS SCH ×3 (08:36→20:50)
[2017-02-18] MEDS: Fluconazole 100 MG TABLET PO SCH (08:36)
[2017-02-18] MEDS: Fluticasone Propionate Nasal 50 MCG/SPRAY BOTTLE NS SCH (08:37)
[2017-02-18] MEDS: Finasteride 5 MG TABLET PO SCH (08:37)
[2017-02-18] MEDS ORDERED: *HR* Digoxin 0.25 MG TABLET PO SCH (09:00)
[2017-02-18] MEDS: Budesonide/Formoterol 160/4.5 MDI IH SCH ×2 (09:43→21:36)
[2017-02-18] MEDS: Isosorbide MONOnitrate (24 HR) 60 MG TAB.ER.24H PO SCH (17:32)
[2017-02-18] MEDS: Metoprolol XL (24 HR) Succ 50 MG TAB.ER.24H PO SCH (17:32)
[2017-02-19] MEDS: Nystatin SUSP 5 ML UD.LIQ PO SCH ×4 (00:40→17:28)
[2017-02-19] MEDS: predniSONE 10 MG TABLET PO SCH (09:43)
[2017-02-19] MEDS: Fluconazole 100 MG TABLET PO SCH (09:43)
[2017-02-19] MEDS: Finasteride 5 MG TABLET PO SCH (09:44)
[2017-02-19] MEDS: Aspirin Enteric Coated 81 MG Tablet PO SCH (09:44)
[2017-02-19] MEDS: *HR* Digoxin 0.25 MG TABLET PO SCH (09:45)
[2017-02-19] MEDS: Budesonide/Formoterol 160/4.5 MDI IH SCH ×2 (10:04→22:00)
[2017-02-19] MEDS: Fluticasone Propionate Nasal 50 MCG/SPRAY BOTTLE NS SCH (13:54)
[2017-02-19] MEDS: Carbamide Peroxide 150 DROP/15 ML BOTTLE BOTH EARS SCH ×2 (13:57→16:18)
[2017-02-19] MEDS: Furosemide 20 MG TABLET PO SCH (15:03)
[2017-02-19] MEDS: Metoprolol XL (24 HR) Succ 50 MG TAB.ER.24H PO SCH (17:04)
[2017-02-19] MEDS: Isosorbide MONOnitrate (24 HR) 60 MG TAB.ER.24H PO SCH (17:24)
[2017-02-20] MEDS: Nystatin SUSP 5 ML UD.LIQ PO SCH ×5 (00:13→23:02)
[2017-02-20] MEDS: Finasteride 5 MG TABLET PO SCH (09:23)
[2017-02-20] MEDS: Aspirin Enteric Coated 81 MG Tablet PO SCH ×2 (09:23→15:26)
[2017-02-20] MEDS: Fluconazole 100 MG TABLET PO SCH (09:23)
[2017-02-20] MEDS: Budesonide/Formoterol 160/4.5 MDI IH SCH ×2 (11:06→21:46)
[2017-02-20] MEDS: Fluticasone Propionate Nasal 50 MCG/SPRAY BOTTLE NS SCH (14:02)
--- NOTE | 2017-02-20 14:31 | Internal Med Progress Note ---
Date of Encounter: 02/20/17 Time of Encounter: 12:35 - Assessment and plan (1) Pneumonia Current Visit: No Status: Acute Assessment and plan: February 11. Leukocytosis with left shift has slightly worsened. He does not feel unusually dyspneic and has not had fevers. Will monitor without giving antibiotics at this time. February 12. Recheck CBC in a.m. Remains afebrile. February 13. WBC has stabilized. Differential is minimally changed. Will continue to observe without antibiotics. February 20. We will recheck labs in a.m. Qualifiers: Pneumonia type: due to unspecified organism Laterality: bilateral Lung location: unspecified part of lung Qualified Code(s): J18.9 - Pneumonia, unspecified organism (2) Idiopathic pulmonary fibrosis Current Visit: No Status: Acute Assessment and plan: February 11. Will decrease prednisone. Continue oxygen. (3) Atrial fibrillation Current Visit: No Status: Acute Assessment and plan: February 11. Continue aspirin. Qualifiers: Atrial fibrillation type: paroxysmal Qualified Code(s): I48.0 - Paroxysmal atrial fibrillation (4) Chronic systolic (congestive) heart failure Current Visit: No Status: Chronic Assessment and plan: February 11. Will increase isosorbide. Decrease Lasix to avoid worsening azotemia. Add Lanoxin. Continue metoprolol and lisinopril. February 12. Continue present regimen. Recheck labs in a.m. February 13. BMP peptide is risen to 761. Lanoxin level is low so dose will be increased. Continue lisinopril, Lasix, and metoprolol.. February 15. Bn peptide has improved to 615. Lanoxin level therapeutic at 1.1. Will discontinue lisinopril since his blood pressure is occasionally borderline low and he still has azotemia. Decrease Lasix to every other day and monitor labs and clinical response. February 20. Recheck labs in a.m. (5) Weight loss Current Visit: Yes Status: Acute Assessment and plan: February 11. TSH was normal. February 15. Remeron was ordered. He refused it last night. February 17. He has consistently refused Remeron. Will discontinue it. (6) Acute renal failure (ARF) Current Visit: No Status: Acute Assessment and plan: February 11. Will decrease Lasix and monitor labs. February 12. Recheck labs in a.m. February 13. Significantly improved. Continue present regimen February 15. We will decrease Lasix and discontinue lisinopril as per above. Continue to monitor renal indices. February 20. Recheck labs in a.m. Qualifiers: Acute renal failure type: unspecified Qualified Code(s): N17.9 - Acute kidney failure, unspecified (7) Pain on swallowing Current Visit: Yes Status: Acute Assessment and plan: February 12. Will order Diflucan and continue Mycostatin MW. February 15. He has not complained of this in the last 2 days. February 17. He mentioned to the nurse he again had dysphagia. The fluconazole and nystatin have been restarted. February 20. Continue fluconazole and nystatin. (8) Anxiety Current Visit: Yes Status: Acute Assessment and plan: February 13. His reports he becomes slightly confused and very anxious at nighttime. I will order prn Xanax. Will also order scheduled trazodone at bedtime for insomnia February 15. He does not want to take a scheduled hypnotic. We will change trazodone to when necessary. Continue Xanax when necessary (9) Ceruminosis Current Visit: Yes Status: Acute Assessment and plan: February 17. Will order Debrox now and irrigate after a few doses. February 20. He received Debrox and irrigation and has no complaints. Qualifiers: Laterality: bilateral Qualified Code(s): H61.23 - Impacted cerumen, bilateral - Subjective Interval history: February 11. He has no new complaints. He reports persistent mild pain on swallowing February 12. He has no new complaints but persistent mild pain on swallowing. February 13. He has no new complaints. He did not mention pain on swallowing today. February 15. He has no new complaints. February 17. He reports feeling fullness in his ears ears with decreased hearing. He has had cerumenosis when this has occurred previously. February 20. He reports frustration at some staff because he feels pressured to quickly complete tasks beyond his physical ability. - Constitutional Vitals: Temp Pulse Resp BP Pulse Ox 98.9 F 76 18 101/66 81 02/20/17 06:31 02/20/17 08:30 02/20/17 06:31 02/20/17 06:31 02/20/17 08:30 Exam: He is resting in bed and appears fairly comfortable. He is wearing oxygen by nasal cannula. His speech is appropriate. I reviewed his medications and lab results. His was in the room when Gayatri EVANS and I spoke with him. Internal Medicine: Result - Labs CBC & Chem 7: 02/18/17 04:30 02/18/17 04:30 - ABG Interpretation ABG results: PT/INR, D-dimer PT 12.5 Seconds (9.4-12.1) H 02/10/17 05:42 Consult Discharge Plan - Plan Referrals: Gayatri Jade, HORTICULTURAL NURSERY ASSISTANT [Primary Care Provider] - 1 week
[2017-02-20] MEDS: Metoprolol XL (24 HR) Succ 25 MG TAB.ER.24H PO SCH ×2 (15:26→16:56)
[2017-02-20] MEDS: Isosorbide MONOnitrate (24 HR) 60 MG TAB.ER.24H PO SCH (16:56)
[2017-02-20] MEDS: ALPRAZolam 0.25 MG TABLET PO PRN (23:00)
[2017-02-21 05:32] LABS: Basophils % 0.1 %; Eosinophils # 0.5 K/mcL (0.0-0.6); Eosinophils % 3.2 %; Hematocrit 37.4 % (37.5-50.1); Hemoglobin 12.2 g/dL (12.9-16.9); Immature Granulocytes % 0.5 % (0-4); Lymphocytes # 1.4 K/mcL (0.6-4.6); Lymphocytes % 9.1 %; Mean Corpuscular HGB Conc 32.6 g/dL (31.6-35.5); Mean Corpuscular Volume 91.9 fL (83.0-100.0); Mean Platelet Volume 12.1 fL (9.4-12.4); Monocytes # 0.5 K/mcL (0.0-1.3); Monocytes % 3.5 %; Neutrophils # 12.9 K/mcL (1.6-8.9); Platelet Count 188 K/mcL (140-400); Red Blood Count 4.07 M/mcL (4.19-5.50); Red Cell Distribution Width 13.8 % (11.5-14.5); Segmented Neutrophils % 83.6 %
[2017-02-21 05:56] LABS: Albumin 2.4 g/dL (3.5-5.0); Albumin/Globulin Ratio 0.6 (1.1-2.2); Bilirubin,Total 0.6 mg/dL (0.2-1.2); Calcium 9.2 mg/dL (8.6-10.8); Globulin 3.8 g/dL (2.4-3.5); Potassium 4.6 mEq/L (3.5-4.5); Total Protein 6.2 g/dL (6.0-8.3)
[2017-02-21 06:02] LABS: Digoxin 1.5 ng/mL (0.8-2.0)
[2017-02-21] MEDS: Nystatin SUSP 5 ML UD.LIQ PO SCH ×3 (06:14→18:32)
[2017-02-21] MEDS: Fluconazole 100 MG TABLET PO SCH (07:35)
[2017-02-21] MEDS: Aspirin Enteric Coated 81 MG Tablet PO SCH (07:35)
[2017-02-21] MEDS: Finasteride 5 MG TABLET PO SCH (07:35)
[2017-02-21] MEDS: predniSONE 10 MG TABLET PO SCH (07:35)
[2017-02-21] MEDS: *HR* Digoxin 0.25 MG TABLET PO SCH (07:36)
[2017-02-21] MEDS: Furosemide 20 MG TABLET PO SCH (07:46)
[2017-02-21] MEDS: Fluticasone Propionate Nasal 50 MCG/SPRAY BOTTLE NS SCH (07:49)
[2017-02-21] MEDS: Budesonide/Formoterol 160/4.5 MDI IH SCH ×2 (10:44→21:40)
[2017-02-21] MEDS: Isosorbide MONOnitrate (24 HR) 60 MG TAB.ER.24H PO SCH (18:32)
[2017-02-21] MEDS: Metoprolol XL (24 HR) Succ 25 MG TAB.ER.24H PO SCH (18:32)
[2017-02-22] MEDS: Nystatin SUSP 5 ML UD.LIQ PO SCH ×2 (00:23→06:26)
[2017-02-22 06:50] VITALS: BP 101/57
[2017-02-22] MEDS: Fluconazole 100 MG TABLET PO SCH (14:23)
[2017-02-22] MEDS: Aspirin Enteric Coated 81 MG Tablet PO SCH (14:23)
[2017-02-22] MEDS: Fluticasone Propionate Nasal 50 MCG/SPRAY BOTTLE NS SCH (14:24)
[2017-02-22] MEDS: Finasteride 5 MG TABLET PO SCH (14:24)
--- NOTE | 2017-02-22 18:21 | Discharge Summary ---
Date of Encounter: 02/22/17 Time of Encounter: 11:00 - Discharge Diagnosis (1) Pneumonia Priority: Primary Status: Acute Qualifiers: Pneumonia type: due to unspecified organism Laterality: bilateral Lung location: unspecified part of lung Qualified Code(s): J18.9 - Pneumonia, unspecified organism (2) Idiopathic pulmonary fibrosis Priority: Secondary Status: Chronic (3) Atrial fibrillation Priority: Secondary Status: Chronic Qualifiers: Atrial fibrillation type: paroxysmal Qualified Code(s): I48.0 - Paroxysmal atrial fibrillation (4) Chronic systolic (congestive) heart failure Priority: Secondary Status: Chronic (5) Weight loss Priority: Secondary Status: Acute (6) Acute renal failure (ARF) Priority: Secondary Status: Acute Qualifiers: Acute renal failure type: unspecified Qualified Code(s): N17.9 - Acute kidney failure, unspecified (7) Pain on swallowing Priority: Secondary Status: Acute (8) Anxiety Priority: Secondary Status: Acute (9) Ceruminosis Priority: Secondary Status: Acute Qualifiers: Laterality: bilateral Qualified Code(s): H61.23 - Impacted cerumen, bilateral - Discharge Medications Prescriptions: LORazepam Oral Conc [Ativan Oral Conc] 2 mg PO Q2H #120 mls Morphine Oral CONC [Roxanol] 0.5 ml PO Q1H PRN #120 ml PRN Reason: Pain Home Medications: Albuterol Sulfate [Ventolin Hfa] 2 puff IH Q4-6H PRN 02/09/15 [History] Finasteride [Proscar] 5 mg PO DAILY 02/09/15 [History] Fluticasone/Salmeterol [Advair 500-50 Diskus] 1 each IH BID 02/09/15 [History] Nitroglycerin 0.4 mg SL Q5MIN PRN 02/09/15 [History] Acetaminophen [Tylenol] 650 mg PO Q6HR PRN tablet 02/09/17 [Rx] Isosorbide MONOnitrate (24 HR) [Imdur] 120 mg PO QPM tab.er.24h 02/22/17 [Rx] LORazepam Oral Conc [Ativan Oral Conc] 2 mg PO Q2H #120 mls 02/22/17 [Rx] Metoprolol XL (24 HR) Succ [Toprol Xl] 25 mg PO QPM tab.er.24h 02/22/17 [Rx] Morphine Oral CONC [Roxanol] 0.5 ml PO Q1H PRN #120 ml 02/22/17 [Rx] Tamsulosin [Flomax] 0.4 mg PO DAILY capsule 02/22/17 [Rx] Allergies/Adverse Reactions: 3 Allergy/AdvReac Type Severity Reaction Status Date / Time No Known Allergies Allergy Verified 06/20/16 13:27 Date of admission: 02/09/17 15:29 Primary care physician: Gayatri Jade CNP Consults: 02/09/17 15:47 Consult to Occupational Therapy [CONS] Routine Comment: evaluate, implement, and develope plan of care Reason for Consult: evaluate, implement, and develope plan of care Consult to Physical Therapy [CONS] Routine Comment: evaluate, implement, and develope plan of care Reason for Consult: evaluate, implement, and develope plan of care Consult to Automotive Shop Foreman [CONS] Routine Reason for SW Consult: discharge planning 02/09/17 16:13 Consult to Nutrition [CONS] Routine Comment: Consulting Provider: NUTRITION Reason for Dietary Consult: MST Score Consult to Automotive Shop Foreman [CONS] Routine Reason for SW Consult: living at home, periods of confusion, home O2 - Patient Status Disposition: Hospice - Medical Facility Functional capacity at discharge: bed bound - Discharge Instructions - Diet and Activity Activity: wear oxygen at all times Diet: advance to your usual diet Hospital course: Mr. Bojorquez is a 77 year old male male who was hospitalized at [facility] February 01- February 09 after presenting with dyspnea. He was found to have bilateral pneumonia on chest CT. He was stabilized and discharged to [facility] swing bed for rehabilitation therapy prior to returning home. His respiratory history is significant for a diagnosis of pulmonary fibrosis in 2011. He smoked from age [age] and has a diagnosis of COPD. He wears oxygen 24 /7 at home. He follows with an [facility] electronic parts designer. Initial orders were written by the discharging physicians at [facility]. I saw him on February 10 and performed the swing bed history and physical. Physical therapy and occupational therapy evaluations with ongoing intervention were done. His dyspnea significantly limited his participate in therapy. He was unable to dissipate regularly with the therapist and other times simply chose not to attempt participate. He had poor oral intake and his azotemia significantly worsened with creatinine rising from 1.49 on February 15 to 2.91 on February 21. Several conversations were made with the family about his lack of progress and overall prognosis. On February 22 it was agreed by patient's and family that it was best for him to be discharged to inpatient hospice care at [facility]. Anticipated survival is approximately one week. - Time Spent with Patient Total time spent providing and/or coordinating discharge services: - Constitutional Vitals: Temp Pulse Resp BP Pulse Ox 97.9 F 95 18 101/57 95 02/22/17 06:45 02/22/17 06:45 02/22/17 09:28 02/22/17 06:45 02/22/17 09:28
== END 2017-02-22 19:03 | disposition hospice, inpatient (51) | DRG 945 ==
LOC: INPPIK 15:29
PROVIDERS: ADMIT Internal Medicine; ATTEND Internal Medicine

== ENCOUNTER 2017-02-22 16:48 | Inpatient (IN) ==
[2017-02-22] MEDS ORDERED: Acetaminophen 650 MG RECTAL SUPP RC PRN (17:47)
[2017-02-22] MEDS ORDERED: *HR* LORazepam Oral Conc 2 MG/ML PO PRN (19:15)
[2017-02-22] MEDS: Morphine Oral CONC 5 MG/0.25 ML ORAL.SYG PO PRN (20:08)
[2017-02-23] MEDS: Morphine Oral CONC 5 MG/0.25 ML ORAL.SYG PO PRN ×2 (01:05→01:09)
[2017-02-23] MEDS: Isosorbide MONOnitrate (24 HR) 60 MG TAB.ER.24H PO SCH (09:20)
[2017-02-23] MEDS: Metoprolol XL (24 HR) Succ 25 MG TAB.ER.24H PO SCH (09:20)
[2017-02-23] MEDS: Finasteride 5 MG TABLET PO SCH (09:20)
--- NOTE | 2017-02-23 12:38 | Internal Med Progress Note ---
Date of Encounter: 02/23/17 Time of Encounter: 12:30 - Assessment and plan (1) Idiopathic pulmonary fibrosis Current Visit: No Status: Chronic Assessment and plan: February 23. Continue oxygen and supportive care. (2) Acute renal failure (ARF) Current Visit: No Status: Acute Assessment and plan: February 23. Will not order further labs. I explained to his his renal function would continue to deteriorate since he has no oral intake. Anticipate survival 5-7 days maximum Qualifiers: Acute renal failure type: unspecified Qualified Code(s): N17.9 - Acute kidney failure, unspecified - Subjective Interval history: February 23. He was hospitalized in [facility] swing bed February 10 after an [facility] stay for dyspnea from bilateral pneumonia and pulmonary fibrosis. He did not progress significantly during swing bed stay and had overall decline in strength. His renal function declined and family elected to change him to inpatient hospice. He is sleeping at present time and I did not attempt to awaken him. - Constitutional Vitals: Temp Pulse Resp BP 98.4 F 75 16 92/53 02/22/17 20:19 02/22/17 20:19 02/22/17 20:19 02/22/17 20:19 Exam: He is resting comfortably in bed. He is wearing oxygen by nasal cannula. Fingernails show no cyanosis. I reviewed his medications. Consult Discharge Plan - Plan Referrals: Gayatri Jade, FIELD SUPERVISOR [employer]ODUCTION [Primary Care Provider] - 1 week
[2017-02-24] MEDS: Morphine Oral CONC 5 MG/0.25 ML ORAL.SYG PO PRN ×2 (09:06→11:34)
[2017-02-24] MEDS: Finasteride 5 MG TABLET PO SCH (11:34)
[2017-02-24] MEDS: Isosorbide MONOnitrate (24 HR) 60 MG TAB.ER.24H PO SCH (19:30)
[2017-02-24] MEDS: Metoprolol XL (24 HR) Succ 25 MG TAB.ER.24H PO SCH (19:30)
[2017-02-25 08:51] VITALS: BP 55/31
[2017-02-25] MEDS: Isosorbide MONOnitrate (24 HR) 60 MG TAB.ER.24H PO SCH (09:27)
[2017-02-25] MEDS: Finasteride 5 MG TABLET PO SCH (09:27)
[2017-02-25] MEDS: Metoprolol XL (24 HR) Succ 25 MG TAB.ER.24H PO SCH (09:28)
[2017-02-25] MEDS ORDERED: Morphine Oral CONC 5 MG/0.25 ML ORAL.SYG PO PRN (11:13)
--- NOTE | 2017-02-25 12:25 | Discharge Summary ---
Date of Encounter: 02/25/17 Time of Encounter: 12:22 - Discharge Diagnosis (1) Idiopathic pulmonary fibrosis Priority: Primary Status: Chronic (2) Acute renal failure (ARF) Priority: Secondary Status: Acute Qualifiers: Acute renal failure type: unspecified Qualified Code(s): N17.9 - Acute kidney failure, unspecified - Discharge Medications Home Medications: Albuterol Sulfate [Ventolin Hfa] 2 puff IH Q4-6H PRN 02/09/15 [History] Finasteride [Proscar] 5 mg PO DAILY 02/09/15 [History] Fluticasone/Salmeterol [Advair 500-50 Diskus] 1 each IH BID 02/09/15 [History] Nitroglycerin 0.4 mg SL Q5MIN PRN 02/09/15 [History] Acetaminophen [Tylenol] 650 mg PO Q6HR PRN tablet 02/09/17 [Rx] Isosorbide MONOnitrate (24 HR) [Imdur] 120 mg PO QPM tab.er.24h 02/22/17 [Rx] LORazepam Oral Conc [Ativan Oral Conc] 2 mg PO Q2H #120 mls 02/22/17 [Rx] Metoprolol XL (24 HR) Succ [Toprol Xl] 25 mg PO QPM tab.er.24h 02/22/17 [Rx] Morphine Oral CONC [Roxanol] 0.5 ml PO Q1H PRN #120 ml 02/22/17 [Rx] Tamsulosin [Flomax] 0.4 mg PO DAILY capsule 02/22/17 [Rx] Allergies/Adverse Reactions: 3 Allergy/AdvReac Type Severity Reaction Status Date / Time No Known Allergies Allergy Verified 06/20/16 13:27 Date of admission: 02/22/17 19:17 Primary care physician: Gayatri Jade CNP Consults: 02/22/17 17:47 Consult to Palliative Care [CONS] Routine Comment: Consulting Provider: Palliative Care Alejandra Reason for Consult: multiple dx - end of life Call Completed: Yes - Patient Status Disposition: - Discharge Instructions Hospital course: Mr. Bojorquez is a 77 year old male who was hospitalized in [facility] swing bed February 10 after an [facility] stay for dyspnea from bilateral pneumonia and pulmonary fibrosis. He did not progress significantly during swing bed stay and had overall decline in strength. His renal function declined and family elected to change him to inpatient hospice. He was admitted to inpatient hospice on February 23. He was given comfort medications as needed. He was found be without pulse or respirations at 11:54 AM on 02/25/2017 and was pronounced . - Time Spent with Patient Total time spent providing and/or coordinating discharge services: - Constitutional Vitals: Temp Pulse Resp BP Pulse Ox 100.1 F H 79 30 55/31 94 02/25/17 08:43 02/25/17 08:43 02/25/17 08:43 02/25/17 08:43 02/23/17 18:48
== END 2017-02-25 13:18 | disposition expired | DRG 197 ==
LOC: INPPIK 19:17
PROVIDERS: ADMIT Internal Medicine; ATTEND Internal Medicine